=== PATIENT | female | born 1980 | race Hispanic/Latino ===

== ENCOUNTER 2017-06-15 21:14 | Emergency (ER) | payer OTHER ==
[~2017-06-15] VITALS: Ht 152.4 cm; Wt 72.8 kg
[2017-06-15] MEDS ORDERED: GENTAMICIN15 ML/BTL OU (22:02)
[2017-06-15 23:00] VITALS: BP 125/78
== END 2017-06-15 23:02 | disposition home or self-care (01) | DRG 918 ==
LOC: ED 21:14
DX: T65.891A Toxic effect of other specified substances, accidental (unintentional), initial encounter (principal); H10.213 Acute toxic conjunctivitis, bilateral; Y92.89 Other specified places as the place of occurrence of the external cause